=== PATIENT | male | born 1970 | race African-American/Black ===

== ENCOUNTER 2019-04-23 07:42 | Emergency (ER) | payer SELFPAY ==
[~2019-04-23] VITALS: Ht 188 cm; Wt 88.0 kg
[2019-04-23] MEDS ORDERED: IBUPROFEN 600MG TABLET PO ONE (09:15)
[2019-04-23 09:26] VITALS: BP 138/79
== END 2019-04-23 09:39 | disposition home or self-care (01) ==
LOC: ER 07:42
DX: S50.01XA Contusion of right elbow, initial encounter (principal); M25.531 Pain in right wrist; M77.9 Enthesopathy, unspecified; V00.131A Fall from skateboard, initial encounter; Y93.51 Activity, roller skating (inline) and skateboarding; Y92.89 Other specified places as the place of occurrence of the external cause
CPT/HCPCS: 73080; 99283

== ENCOUNTER 2021-12-18 11:13 | Emergency (ER) | payer MEDICAID ==
[~2021-12-18] VITALS: Ht 190.5 cm; Wt 93.0 kg
[2021-12-18] MEDS ORDERED: IBUPROFEN 600MG TABLET PO ONE (11:45)
[2021-12-18] MEDS ORDERED: AMOXICILLIN/POTASSIUM CLAVULANATE 875/125MG TAB PO ONE (11:45)
[2021-12-18 12:42] VITALS: BP 153/90
[2021-12-18] MEDS ORDERED: AMOX-424 MT (13:46)
[2021-12-18] MEDS ORDERED: TOPUD MT (13:47)
== END 2021-12-18 14:24 | disposition home or self-care (01) ==
LOC: ER 11:13
DX: K11.20 Sialoadenitis, unspecified (principal)
CPT/HCPCS: 76536; 99284

== ENCOUNTER 2023-09-02 22:36 | Emergency (ER) | payer MEDICAID ==
[~2023-09-02] VITALS: Ht 185.4 cm; Wt 82.7 kg
[~2023-09-02 22:36] MED LIST: AMOX-424 MT; TOPUD MT
[2023-09-02 22:58] VITALS: RESP 15; TEMP 98.3; O2SAT 100
[2023-09-03] MEDS ORDERED: IBUP-2028 MT (01:52)
[2023-09-03 02:06] VITALS: BP 129/90; PULSE 78
== END 2023-09-03 02:08 | disposition home or self-care (01) ==
LOC: ER 22:36
DX: M25.532 Pain in left wrist (principal)
CPT/HCPCS: 73110; 99283